=== PATIENT | female | born 1935 | race Caucasian/White ===

== ENCOUNTER 2017-07-26 11:26 | Outpatient (CLI) | payer MEDICARE, OTHER | END 2017-07-26 11:27 | disposition home or self-care (01) | LOC: BICMAMMO 11:26 | PROVIDERS: ATTEND Internal Medicine | DX: Z12.31 Encounter for screening mammogram for malignant neoplasm of breast (principal); Z85.3 Personal history of malignant neoplasm of breast | CPT/HCPCS: 77063; 77067 ==

== ENCOUNTER 2018-07-31 10:19 | Outpatient (CLI) | payer MEDICARE, OTHER ==
--- NOTE | 2018-08-01 11:58 | MMO ---
Bilateral MAMMO Bilat Screen [facility]. CLINICAL HISTORY: Patient is 83 years old and is seen for screening. The patient has no family history of breast cancer. 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 VIEWS: The views performed were: bilateral craniocaudal with tomosynthesis and bilateral mediolateral oblique with tomosynthesis. FILMS COMPARED: The present examination has been compared to prior imaging studies performed at [facility] on 07/26/2017, and at [facility] on 05/25/2013, 06/01/2014, 06/03/2015, 06/14/2016 and 06/21/2016. MAMMOGRAM FINDINGS: There are scattered fibroglandular densities. Finding 1: There are stable benign appearing calcifications seen in both breasts. There are also vascular calcifications. Finding 2: There is a stable post-surgical scar seen in the left breast. There are no suspicious masses, suspicious calcifications, or new areas of architectural distortion. IMPRESSION: THERE IS NO MAMMOGRAPHIC EVIDENCE OF MALIGNANCY. A ROUTINE FOLLOW-UP MAMMOGRAM IN 1 YEAR IS RECOMMENDED. THE RESULTS OF THIS EXAM WERE SENT TO THE PATIENT. ACR BI-RADS Category 2 - Benign finding MAMMOGRAPHY NOTE: 1. A negative mammogram report should not delay a biopsy if a dominant of clinically suspicious mass is present. 2. Approximately 10% to 15% of breast cancers are not detected by mammography. 3. Adenosis and dense breasts may obscure an underlying neoplasm.
== END 2018-07-31 10:20 | disposition home or self-care (01) ==
LOC: BICMAMMO 10:19
PROVIDERS: ATTEND Internal Medicine
DX: Z12.31 Encounter for screening mammogram for malignant neoplasm of breast (principal)
CPT/HCPCS: 77063; 77067

== ENCOUNTER 2019-01-28 13:36 | Outpatient (CLI) | payer MEDICARE, OTHER ==
--- NOTE | 2019-01-28 15:30 | ULT ---
Bilateral lower extremity venous Doppler evaluation 01/28/2019 PROVIDED CLINICAL HISTORY: Edema, swelling, assess for DVT TECHNIQUE: Grayscale, color doppler and spectral doppler images were obtained of the venous structu res of bilateral lower extremities. FINDINGS: There is normal compression, flow and augmentation seen with the deep venous structures within both l ower extremities. The bilateral common femoral veins, greater saphenous veins, profunda femoral veins, femoral veins, p opliteal veins, and posterior tibial veins are patent. No evidence for lower extremity DVT seen on either side. IMPRESSION: No sonographic evidence for lower extremity deep venous thrombosis of either lower extremity.
== END 2019-01-28 13:37 | disposition home or self-care (01) ==
LOC: ULT 13:36
PROVIDERS: ATTEND Internal Medicine
DX: R60.9 Edema, unspecified (principal)
CPT/HCPCS: 93970

== ENCOUNTER 2022-06-26 10:47 | Outpatient (CLI) | payer MEDICARE, OTHER | END 2022-06-26 10:48 | disposition home or self-care (01) | LOC: RAD-FRANK 10:47 | PROVIDERS: ATTEND Nurse Practitioner Family | DX: M54.42 Lumbago with sciatica, left side (principal); M47.816 Spondylosis without myelopathy or radiculopathy, lumbar region; M41.9 Scoliosis, unspecified | CPT/HCPCS: 72100 ==

== ENCOUNTER 2022-11-01 13:09 | Emergency (ER) | payer MEDICARE, OTHER ==
[2022-11-01] MEDS ORDERED: Lidocaine 1% PF 5 ML VIAL ONE (14:42)
== END 2022-11-01 16:00 | disposition home or self-care (01) ==
LOC: ERS 13:09
DX: S81.811A Laceration without foreign body, right lower leg, initial encounter (principal); I10 Essential (primary) hypertension; Z79.899 Other long term (current) drug therapy; Z79.01 Long term (current) use of anticoagulants; W55.03XA Scratched by cat, initial encounter
CPT/HCPCS: 12001

== ENCOUNTER 2023-02-11 08:54 | Outpatient (CLI) | payer MEDICARE, OTHER | END 2023-02-11 08:55 | disposition home or self-care (01) | LOC: RAD-FRANK 08:54 | PROVIDERS: ATTEND Nurse Practitioner Family | DX: M25.562 Pain in left knee (principal); M17.12 Unilateral primary osteoarthritis, left knee ==